=== PATIENT | male | born 1970 | race Caucasian/White ===

== ENCOUNTER → 2016-11-24 | Outpatient (CLI) | payer BC ==
[~2016-11-24] MED LIST: FEXO1TAB49 PO; LOSA1TAB38 PO; SIMV40TA2 PO
[2016-11-24 17:52] LABS: ALT/SGPT 70 U/L (12-78); AST/SGOT 34 U/L (15-37); BLOOD UREA NITROGEN 13 mg/dl (7-18); CALCIUM 8.8 mg/dl (8.5-10.1); CARBON DIOXIDE 26 mmol/L (21-32); CHLORIDE 106 mmol/L (98-107); CREATININE 0.81 mg/dl (0.60-1.40); GLUCOSE 85 mg/dl (70-99); POTASSIUM 4.1 mmol/L (3.5-5.1); SODIUM 140 mmol/L (136-145)
[2016-11-24 17:54] LABS: ALB/GLOB RATIO 1.1 (0.9-2); ALKALINE PHOSPHATASE 50 U/L (45-117); CHOLESTEROL 184 mg/dl (0-200); CHOLESTEROL/HDL RATIO 3.4; HDL CHOLESTEROL 54 mg/dl; LDL CHOLESTEROL CALCULATED 81 mg/dl; TRIGLYCERIDES 243 mg/dl (0-150); VERY LOW DENSITY LIPOPROT CALC 49 mg/dl
[2016-11-25 06:17] LABS: ESTIMATED AVERAGE GLUCOSE 105 mg/dl; HA1C FLAG Normal (Normal)
== END | disposition home or self-care (01) ==
LOC: C.LAB1850 16:29
PROVIDERS: ATTEND Internal Medicine Geriatric Medicine
DX: I10 Essential (primary) hypertension (principal); L40.9 Psoriasis, unspecified; M47.9 Spondylosis, unspecified; E78.5 Hyperlipidemia, unspecified; R73.9 Hyperglycemia, unspecified

== ENCOUNTER → 2017-06-10 | Outpatient (CLI) | payer BC ==
[2017-06-10 17:09] LABS: BLOOD UREA NITROGEN 12 mg/dl (7-18); BUN/CREATININE RATIO 12.7 (10-20); CALCIUM 8.8 mg/dl (8.5-10.1); CARBON DIOXIDE 27 mmol/L (21-32); CHLORIDE 107 mmol/L (98-107); CREATININE 0.98 mg/dl (0.60-1.40); GLUCOSE 92 mg/dl (70-99); POTASSIUM 4.1 mmol/L (3.5-5.1); SODIUM 139 mmol/L (136-145)
[2017-06-10 17:12] LABS: CHOLESTEROL 179 mg/dl (0-200); CHOLESTEROL/HDL RATIO 3.7; HDL CHOLESTEROL 48 mg/dl; LDL CHOLESTEROL CALCULATED 80 mg/dl; TRIGLYCERIDES 256 mg/dl (0-150); VERY LOW DENSITY LIPOPROT CALC 51 mg/dl
== END | disposition home or self-care (01) ==
LOC: C.LABBC 15:26
PROVIDERS: ATTEND Internal Medicine Geriatric Medicine
DX: I10 Essential (primary) hypertension (principal); E78.5 Hyperlipidemia, unspecified

== ENCOUNTER → 2018-01-04 | Outpatient (CLI) | payer BC ==
[2018-01-04 11:02] LABS: ALBUMIN 3.5 gm/dl (3.4-5.0); ALT/SGPT 51 U/L (12-78); BLOOD UREA NITROGEN 17 mg/dl (7-18); CALCIUM 8.8 mg/dl (8.5-10.1); CARBON DIOXIDE 28 mmol/L (21-32); CHOLESTEROL 152 mg/dl (0-200); CREATININE 0.93 mg/dl (0.60-1.40); GLUCOSE 101 mg/dl (70-99); POTASSIUM 4.2 mmol/L (3.5-5.1); SODIUM 140 mmol/L (136-145)
[2018-01-04 11:12] LABS: ALKALINE PHOSPHATASE 54 U/L (45-117); AST/SGOT 20 U/L (15-37); LDL CHOLESTEROL CALCULATED 69 mg/dl; TOTAL PROTEIN 7.3 gm/dl (6.4-8.2)
[2018-01-04 11:32] LABS: HEMOGLOBIN A1C 5.6 % (4.5-5.6)
== END | disposition home or self-care (01) ==
LOC: C.LABBC 07:21
PROVIDERS: ATTEND Internal Medicine Geriatric Medicine
DX: I10 Essential (primary) hypertension (principal); E78.5 Hyperlipidemia, unspecified; R73.9 Hyperglycemia, unspecified

== ENCOUNTER → 2018-02-03 | Outpatient (CLI) | payer BC ==
--- NOTE | 2018-02-03 09:16 | DIAGNOSTIC IMAGING REPORT ---
ABDOMEN ULTRASOUND FOR HERNIA CLINICAL HISTORY: R10.30 Severe left groin [id number] COMPARISON STUDY: Abdomen and pelvis CT 03/19/2013. FINDINGS: Real-time sonographic imaging of the left inguinal region was performed. No evidence for left inguinal hernia. No fluid collections, masses, lymphadenopathy. IMPRESSION: No evidence for left inguinal hernia. Electronically signed by: Jas Figueroa M.D. 02/03/2018 9:15 AM Dictated Date/Time: 02/03/2018 9:14 AM
== END | disposition home or self-care (01) ==
LOC: C.ULTRBC 08:42
PROVIDERS: ATTEND Family Medicine Adult Medicine
DX: R10.30 Lower abdominal pain, unspecified (principal)